=== PATIENT | male | born 1955 | race Caucasian/White ===

== ENCOUNTER → 2020-07-18 13:22 | Outpatient (CLI) | payer SELFPAY ==
--- NOTE | ~2020-07-18 | MR_ITS ---
EXAMINATION: MR lumbar spine wo [facility] EXAM DATE: 07/18/2020 14:06 INDICATION: Low back pain, progressing. Difficulty walking. TECHNIQUE: Multi-sequential, multiplanar MR images of the lumbar spine were obtained without contrast . Sagittal T1, T2, T2 fat saturation images. Axial T2 weighted images. There is no prior study for comparison. FINDINGS: There are fractures from T11 through L5, with moderate to severe loss at the L1 level with anterior wedging which could be considered a burst fracture, with about 3 mm retropulsion of the supe rior endplate. Other fractures appear like compression fractures. Edema from L1 through L4 indicating probable acute or subacute component to these compression fractures. At T11 there is mild loss centr ally, T12 mild to moderate anterior wedging, L2 mild to moderate central compression, L3 moderate jose tral compression, L4 moderate central compression, L5 mild to moderate central compression. These fra ctures are probably from underlying osteopenia. No evidence of underlying lesion to suggest pathologi simon etiology. The conus medullaris terminates at the T12-L1 level and has normal signal intensity and morphology. The vertebral bodies are aligned in the AP dimension. Probably congenitally narrow L5-S1 disc space. The lumbar disc spaces are well-maintained. Paraspinal soft tissue is unremarkable. Level by level evaluation: T11-12: Disc does not extend beyond the endplate margin. Facet arthropathy: Mild. Neural foraminal stenosis: No stenosis. Central canal stenosis: No stenosis. T12-L1: There is a mild diffuse disc bulge, mild retropulsion L1 endplate Facet arthropathy: Mild. Neural foraminal stenosis: No stenosis. Central canal stenosis: Mild. L1-L2: There is a minimal diffuse disc bulge. Facet arthropathy: Mild. Neural foraminal stenosis: Mild left. Central canal stenosis: No stenosis. L2-L3: There is a mild diffuse disc bulge. Facet arthropathy: Mild. Neural foraminal stenosis: Mild to moderate left, mild right. Central canal stenosis: Mild. L3-L4: There is a mild diffuse disc bulge. Facet arthropathy: Mild to moderate . Ligamentum flavum enlargement. Neural foraminal stenosis: Moderate left, mild to moderate right. Central canal stenosis: Mild to moderate. L4-L5: There is a mild diffuse disc bulge. Facet arthropathy: Mild. Neural foraminal stenosis: Mild to moderate bilateral. Central canal stenosis: Mild. L5-S1: There is a mild diffuse disc bulge. Facet arthropathy: Mild. Neural foraminal stenosis: Mild right. Central canal stenosis: No stenosis. IMPRESSION: 1. Acute or subacute components to fractures from L1 through L5. L1 could be a burst rather than com pression fracture given mild retropulsion superior endplate. Consider underlying osteopenia. 2. Up to moderate spondylosis with the left L3-4 neural foramina most narrowed. Reviewed, dictated and finalized at location A. IMPRESSION: 1. Acute or subacute components to fractures from L1 through L5. L1 could be a burst rather than compression fracture given mild retropulsion superior endpla te. Consider underlying osteopenia. 2. Up to moderate spondylosis with the left L3-4 neural foramina most narrowed .
== END ==
DX: M47.817 Spondylosis without myelopathy or radiculopathy, lumbosacral region (principal); M48.07 Spinal stenosis, lumbosacral region; M47.815 Spondylosis without myelopathy or radiculopathy, thoracolumbar region; M48.05 Spinal stenosis, thoracolumbar region; S32.019A Unspecified fracture of first lumbar vertebra, initial encounter for closed fracture; S32.029A Unspecified fracture of second lumbar vertebra, initial encounter for closed fracture; S32.039A Unspecified fracture of third lumbar vertebra, initial encounter for closed fracture; S32.049A Unspecified fracture of fourth lumbar vertebra, initial encounter for closed fracture; S32.059A Unspecified fracture of fifth lumbar vertebra, initial encounter for closed fracture
CPT/HCPCS: 72148

== ENCOUNTER → 2020-09-27 12:59 | Outpatient (CLI) | payer BC, MEDICARE, OTHER, SELFPAY ==
--- NOTE | ~2020-09-27 | MR_ITS ---
EXAMINATION: MR lumbar spine wo con DATE: 09/27/2020 13:41 INDICATION: Low back pain. TECHNIQUE: Magnetic resonance imaging (MRI) of the lumbar spine was performed without intravenous con trast. Sequences included sagittal T2-weighted FSE, sagittal T2-weighted FS FSE, sagittal T1-weighted FSE, and axial T2-weighted FSE. COMPARISON: Lumbar spine MRI 07/18/2020 FINDINGS: There is mild focal kyphosis at T12-L1. There are chronic compression fractures of T10, T11 , and T12. There is a burst fracture of L1 with greater than 4/5 loss of height, retropulsion of bone 4 mm into central spinal canal, and bone marrow edema. There are burst fractures of L2, L3, and L4 w ithout 2 2 mm retropulsion of bone into central spinal canal and mild bone marrow edema. There is mil d interval worsening of height loss of L2 with new involvement of the inferior endplate. There is a c ompression fracture of L5 with 2/5 loss of height and bone marrow edema. There is a compression fract ure of S1 with low signal fracture line and bone marrow edema without significant height loss. Interv ertebral disc heights are normal. The distal spinal cord signal intensity is normal. The conus medull mary is at T12. The following disc levels are specifically discussed: L1-L2: The disc is mildly bulging. There is mild bilateral facet joint osteoarthritis. There is mild bilateral neural foraminal stenosis. There is no central canal stenosis. L2-L3: The disc is bulging. There is mild bilateral facet joint osteoarthritis. There is moderate som ateral neural foraminal stenosis. There is mild central canal stenosis. L3-L4: The disc is mildly bulging. There is moderate bilateral facet joint osteoarthritis. There is m ild bilateral neural foraminal stenosis. There is mild central canal stenosis. L4-L5: The disc is mildly bulging. There is mild bilateral facet joint osteoarthritis. There is moder ate right and mild left neural foraminal stenosis. There is mild central canal stenosis. L5-S1: The disc is bulging. There is mild bilateral facet joint osteoarthritis. There is mild right n eural foraminal stenosis. There is no central canal stenosis. IMPRESSION: 1. Acute/subacute L2 burst fracture and L5 and S1 compression fractures, worsened from 07/18/2020. 2. Subacute L1, L3, and L4 burst fractures, stable from 07/18/20. 3. Moderate lumbar spondylosis. Reviewed, dictated and finalized at location A. IMPRESSION: 1. Acute/subacute L2 burst fracture and L5 and S1 compression fractures, worsen ed from 07/18/2020. 2. Subacute L1, L3, and L4 burst fractures, stable from 07/18/20. 3. Moderate lumbar spondylosis.
== END ==
PROVIDERS: PCP Emergency Medicine
DX: S22.070A Wedge compression fracture of T9-T10 vertebra, initial encounter for closed fracture (principal); S22.080A Wedge compression fracture of T11-T12 vertebra, initial encounter for closed fracture; S32.011A Stable burst fracture of first lumbar vertebra, initial encounter for closed fracture; S32.051A Stable burst fracture of fifth lumbar vertebra, initial encounter for closed fracture; S32.19XA Other fracture of sacrum, initial encounter for closed fracture; M47.817 Spondylosis without myelopathy or radiculopathy, lumbosacral region; M48.07 Spinal stenosis, lumbosacral region
CPT/HCPCS: 72148